=== PATIENT | female | born 1980 | race African-American/Black ===

== ENCOUNTER 2018-07-16 14:47 | Emergency (ER) | payer OTHER ==
[~2018-07-16] VITALS: Ht 165.1 cm; Wt 60.5 kg
[2018-07-16 15:13] VITALS: TEMP 99.3
[2018-07-16] MEDS ORDERED: PRENATAL MVI (15:27)
[2018-07-16 16:53] VITALS: BP 120/66; PULSE 86
== END 2018-07-16 16:54 | disposition home or self-care (01) ==
LOC: COL.ER 14:47
DX: O99.341 Other mental disorders complicating pregnancy, first trimester (principal); F41.0 Panic disorder [episodic paroxysmal anxiety]; Z3A.01 Less than 8 weeks gestation of pregnancy

== ENCOUNTER 2018-11-08 10:51 | Emergency (ER) | payer OTHER ==
[~2018-11-08] VITALS: Ht 165.1 cm; Wt 62.3 kg
[~2018-11-08 10:51] MED LIST: PRENATAL MVI
[2018-11-08 10:56] VITALS: TEMP 98.7
[2018-11-08 11:31] LABS: ALANINE AMINOTRANSFERASE 17 U/L (9-52); ALBUMIN 3.7 gm/dL (3.5-5.0); ALKALINE PHOSPHATASE 47 U/L (50-136); ANION GAP 10 mmol/L (7-16); AST,SGOT 32 U/L (15-37); BILIRUBIN,TOTAL 0.2 mg/dL (0.0-1.0); BLOOD UREA NITROGEN 5 mg/dL (7-17); CALCIUM 9.4 mg/dL (8.4-10.2); CARBON DIOXIDE 24 mmol/L (22-30); CHLORIDE 103 mmol/L (98-107); CREATININE, serum 0.48 (0.52-1.25); GLUCOSE 107 mg/dL (74-106); POTASSIUM 3.4 mmol/L (3.4-5.0); SODIUM 137 mmol/L (137-145); TOTAL PROTEIN 7.6 gm/dL (6.4-8.2)
[2018-11-08 11:32] LABS: BASO % 0.2 % (0.0-2.0); EOS # 0.1 (0.0-0.7); EOS % 0.4 % (0-4.0); GRAN # 9.6 (1.4-6.5); GRAN % 80.5 % (42.2-75.2); HEMOGLOBIN 11.1 g/dl (12.5-16.0); LYMPH # 1.5 (1.2-3.4); LYMPH % 12.3 % (20.0-51.0); MEAN CELL VOLUME 94 fl (80.0-100.0); MEAN CORPUSCULAR HEMOGLOBIN 33 pg (27.0-31.0); MEAN CORPUSCULAR HGB CONC 35 g/dl (33.0-37.0); MEAN PLATELET VOLUME 10.4 fl (7.4-10.4); MONO # 0.6 (0.1-0.6); MONO % 5.3 % (1.7-9.3); PLATELET COUNT 188 K/mm3 (130-400); REDCELL DISTRIBUTION WIDTH-CV 13.2 % (11.5-14.5)
[2018-11-08 11:33] LABS: COLLECTION METHOD CLEAN CATCH
[2018-11-08 11:35] LABS: HEMATOCRIT 31.9 % (37.0-47.0); PROTHROMBIN TIME 11.3 SECONDS (9.7-12.8)
[2018-11-08 11:38] LABS: PARTIAL THROMBOPLASTIN TIME 26.5 SECONDS (26.0-37.0)
[2018-11-08 11:43] LABS: TROPONIN-I < 0.012 ng/mL (0.000-0.035)
[2018-11-08 11:43] LABS: MUCOUS Present /lpf; PH 6 (5-8); URINE APPEARANCE Hazy; URINE BACTERIA None Seen /hpf; URINE BILIRUBIN Negative (NEGATIVE); URINE BLOOD Negative (NEGATIVE); URINE COLOR Yellow; URINE GLUCOSE Negative (NEGATIVE); URINE KETONE 1+ (NEGATIVE); URINE LEUKOCYTE ESTERASE Trace (NEGATIVE); URINE NITRATE Negative (NEGATIVE); URINE PROTEIN(semi-quant) Negative (NEGATIVE); URINE UROBILINOGEN Negative (NEGATIVE)
[2018-11-08] MEDS ORDERED: NORCO 325 MG-51 TAB PO (12:09)
[2018-11-08] MEDS ORDERED: PHENERGAN 25 TA25 MG PO (12:09)
[2018-11-08 13:00] VITALS: BP 107/69; PULSE 81
--- NOTE | 2018-11-08 13:15 | NUR ---
SW was called by ED nurse to speak with patient about resources. Nurse reports patient has been passing out at home and her 7 yr old son found her. Patient reported that her only support while her is deployed is her friend and she is leaving on 11/12. Patient is also 23 weeks . Patient has utilized resources on [place] but she has not been able to find someone who can stay with her after her friend leaves. Patient requested SW contact the [employer] to send a message to patient's that she is in the ER and also to inquire if her would be able to return home for a short period of time. SW reported she is unsure if the [employer] will allow patient to return home but SW will give the message to the [facility]. SW then contacted the [employer] [facility]. SW provided information and also the message from patient to . The [facility] liability claims representative gave SW the case # to provide to patient (case # [id number]). SW gave this to patient and reported that patient can contact the [employer] at any time to get an update on the case. Patient was then discharged.
== END 2018-11-08 13:13 | disposition home or self-care (01) ==
LOC: COL.ER 10:51
PROVIDERS: Family Medicine
DX: O99.352 Diseases of the nervous system complicating pregnancy, second trimester (principal); O26.892 Other specified pregnancy related conditions, second trimester; R00.2 Palpitations; G43.909 Migraine, unspecified, not intractable, without status migrainosus; Z3A.23 23 weeks gestation of pregnancy
CPT/HCPCS: J2550; J7030